=== PATIENT | female | born 1965 | race Caucasian/White ===

== ENCOUNTER 2023-10-28 11:25 | Emergency (ER) | payer MEDICAID ==
[~2023-10-28] VITALS: Ht 152.4 cm; Wt 53.6 kg
[~2023-10-28 11:25] MED LIST: OMEP20 PO
[2023-10-28 11:26] VITALS: TEMP 98
[2023-10-28] MEDS: BACITRACIN 0.9 GM PACKET OINTMENT TP ONE (12:03)
[2023-10-28] MEDS: LIDOCAINE 1%/EPI 1:200,000/PF 10 ML VIAL SQ ONE (12:03)
[2023-10-28] MEDS: ACETAMINOPHEN 325 MG TABLET PO ONE (12:03)
[2023-10-28 13:03] VITALS: BP 126/75; PULSE 75; RESP 16
[2023-10-28] MEDS ORDERED: BACI28.410 TP (13:27)
== END 2023-10-28 13:10 | disposition home or self-care (01) ==
LOC: EMS 11:29
DX: S51.812A Laceration without foreign body of left forearm, initial encounter (principal); W31.89XA Contact with other specified machinery, initial encounter; Y93.89 Activity, other specified; Y92.89 Other specified places as the place of occurrence of the external cause; Y99.8 Other external cause status
CPT/HCPCS: 99282; 12002; J3490